=== PATIENT | female | born 1975 | race Asian ===

== ENCOUNTER 2017-09-27 22:56 | Emergency (ER) | payer BC ==
[~2017-09-27] VITALS: Ht 165.1 cm; Wt 67.1 kg
[2017-09-27 23:02] VITALS: Ht 165.1 cm; Wt 67.1 kg
[2017-09-28 00:50] VITALS: BP 115/72
== END 2017-09-28 00:50 | disposition home or self-care (01) ==
LOC: ED 22:56
DX: L03.012 Cellulitis of left finger (principal)
CPT/HCPCS: J0295

== ENCOUNTER 2017-09-28 22:44 | Emergency (ER) | payer BC ==
[~2017-09-28] VITALS: Ht 165.1 cm; Wt 67.1 kg
[2017-09-28 22:52] VITALS: Ht 165.1 cm; Wt 67.1 kg
[2017-09-28 23:07] VITALS: BP 123/77
== END 2017-09-28 23:07 | disposition home or self-care (01) ==
LOC: ED 22:44
DX: L03.114 Cellulitis of left upper limb (principal)